=== PATIENT | female | born 1960 | race Caucasian/White ===

== ENCOUNTER 2024-11-01 11:13 | Emergency (ER) | payer MEDICARE, SELFPAY ==
[2024-11-01 11:31] VITALS: O2SAT 99
[2024-11-01 11:32] VITALS: BP 183/96; PULSE 83; O2SAT 100
--- NOTE | 2024-11-01 11:33 | DI.CT.S_ITS ---
PROCEDURE: CT HEAD/BRAIN WO CON INDICATIONS: back of head strike on dryer thrusday with continued pain TECHNIQUE: Noncontrast 4.5 mm thick angled axial sections acquired from the foramen magnum to the vertex, with coronal and sagittal reformats. For radiation dose reduction, the following was used: automated exposure control, adjustment of mA and/or kV according to patient size. COMPARISON: None. FINDINGS: Image quality: Diagnostic. CSF spaces: Basal cisterns are patent. No extra-axial fluid collections. The ventricles are symmetric in size and shape. Brain: No intracranial bleeds or mass effect. There is cerebral volume loss, with resultant ventricular and sulcal prominence. There are periventricular and deep white matter chronic small vessel ischemic changes. There is intracranial internal carotid artery atherosclerosis. Skull and face: Calvarium and visualized facial bones appear intact, without suspicious lesions. Sinuses: Visualized sinuses and mastoids are clear. IMPRESSION: No acute intracranial pathology. Dictated by: Alvin Elizalde M.D. on 11/01/2024 at 12:51 Approved by: Alvin Elizalde M.D. on 11/01/2024 at 12:51
[2024-11-01 11:38] VITALS: BP 183/96; PULSE 82; RESP 16; TEMP 37.1; O2SAT 100; BMI 22.3
--- NOTE | 2024-11-01 11:43 | ED.GENADULT ---
HPI - General Adult General Chief complaint: Headache Stated complaint: Hit head on aaron x 5 days no blood thinners Time Seen by Provider: 11/01/24 11:36 History of Present Illness HPI narrative: 64-year-old female presents to the ED with left-sided headache following a head injury sustained 5 days ago. Patient accidentally struck her head on the veneer drier tailer which was stacked above the washer. No loss of consciousness. Patient is not on blood thinners. Patient states that since yesterday, she has been feeling left-sided headache. No vision changes, nausea, vomiting, chest pain, shortness of breath, numbness, tingling, weakness. Related Data Allergies Allergy/AdvReac Type Severity Reaction Status Date / Time No Known Drug Allergies Allergy Verified 11/01/24 11:38 Review of Systems Constitutional Constitutional: Denies chills, Denies fatigue, Denies fever(s), Denies frequent falls, Reports headache(s), Denies lethargy and Denies weakness Eyes Eyes: Denies change in vision, Denies eye discharge, Denies irritation and Denies loss of vision ENT Ears, Nose, Mouth, and Throat: Denies change in voice, Denies dizziness, Reports headache(s), Denies neck pain, Denies sore throat and Denies throat swelling Cardiovascular Cardiovascular: Denies chest pain, Denies irregular heart rhythm, Denies lightheadedness, Denies palpitations, Denies dyspnea, Denies dyspnea on exertion and Denies orthopnea Respiratory Respiratory: Denies cough, Denies dyspnea, Denies dyspnea on exertion and Denies wheezing Gastrointestinal Gastrointestinal: Denies abdominal pain, Denies change in bowel habits, Denies diarrhea, Denies nausea and Denies vomiting Musculoskeletal Musculoskeletal: Denies neck pain and Denies numbness Integumentary/Breasts Skin/Breast: Denies pruritus, Denies erythema, Denies rash and Denies wounds Neurologic Neurologic: Denies behavioral changes, Denies confusion, Denies dizziness, Denies frequent falls, Reports headache(s), Denies loss of vision, Denies numbness and Denies weakness Psychiatric Psychiatric: Denies anxiety, Denies behavioral changes, Denies confusion, Denies depression, Denies homicidal ideation and Denies suicidal ideation Endocrine Endocrine: Denies fatigue, Denies flushing and Denies palpitations Hematologic/Lymphatic Hematologic/Lymphatic: Denies easy bruising Allergic/Immunologic Allergic/Immunologic: Denies urticaria, Denies throat swelling and Denies wheezing Patient History Social History Smoking Status: Never smoker Exam Narrative Exam Narrative: Const General:?cooperative, healthy appearing and comfortable [facility] Head:?normal to inspection Ears:?hearing grossly normal bilaterally Nose:?external nose normal Face and sinus:?normal facial exam and sinuses nontender Mouth:?oral mucosae normal Throat:?posterior oropharynx normal Eyes General:?appearance normal, both eyes and all related structures Neck Neck:?normal visual inspection and no lymphadenopathy noted Resp Effort & Inspection:?normal respiratory effort Auscultation:?clear to auscultation bilaterally Cardio Rate:?regular rate Rhythm:?regular rhythm Musculoskeletal No midline tenderness to palpation. No paraspinal tenderness to palpation. Full range of motion. Neurovascularly intact. Neuro General:?patient alert, patient awake and patient oriented x3; PERRLA; CN 2 to 12 normal bilaterally; gait normal Initial Vital Signs Initial Vital Signs: Vital Signs Pulse Oximetry 99 11/01/24 11:31 Course Orders Ordered: ED Orders 11/01/24 11:33 CT head/brain wo con Stat Discontinued Medications Acetaminophen (Acetaminophen 325 Mg Tablet) 975 mg PO NOW ONE Stop: 11/01/24 11:35 Last Admin: 11/01/24 11:49 Dose: Not Given Documented By: STELLA Acetaminophen (Acetaminophen 325 Mg Tablet) 975 mg PO NOW ONE Stop: 11/01/24 13:23 Last Admin: 11/01/24 13:27 Dose: Not Given Documented By: STELLA Vital Signs Vital signs: Vital Signs - 8 hr 11/01/24 11:31 11/01/24 11:32 11/01/24 11:32 Temperature Pulse Rate 83 Respiratory Rate Blood Pressure 183/96 H Pulse Oximetry 99 100 Oxygen Delivery Method 11/01/24 11:38 11/01/24 13:53 Temperature 98.7 F Pulse Rate 82 72 Respiratory Rate 16 16 Blood Pressure 183/96 H 184/90 H Pulse Oximetry 100 98 Oxygen Delivery Method Room Air Room Air Medical Decision Making [facility] Narrative Medical decision making narrative: 64-year-old female presents to the ED with left-sided headache following a head injury sustained [address] was obtained which shows no acute intracranial pathology. Patient declined Tylenol, states that she took some arnica prior to arrival. Recommend follow-up with PCP as soon as possible. ED return precautions were discussed with patient. Patient verbalized understanding. Medical records reviewed: Yes Discharge Plan Departure Patient Disposition: Home Clinical Impression: Headache Instructions: DI for Headache Activity Restrictions/Additional Instructions: You were evaluated in the ED today for a headache from a fall. Your CT scan was normal. You may take Tylenol for the headache. Return to the ED if you have worsening symptoms. Stand Alone Forms: Patient Portal/API
[2024-11-01 13:53] VITALS: BP 184/90; PULSE 72; RESP 16; O2SAT 98
== END 2024-11-01 13:50 | disposition home or self-care (01) ==
PROVIDERS: Emergency Provider Student in an Organized Health Care Education/Training Program
DX: R51.9 Headache, unspecified (principal); S09.90XA Unspecified injury of head, initial encounter; W22.8XXA Striking against or struck by other objects, initial encounter
CPT/HCPCS: 70450; 99281; 99284